=== PATIENT | female | born 1980 | race American Indian/Alaskan Native ===

== ENCOUNTER 2017-11-21 09:25 | Outpatient (CLI) | payer OTHER ==
--- NOTE | 2017-11-21 11:09 | Ultrasound Report ---
Thyroid ultrasound: Goiter. The right lobe measures 15 x 18 x 45 mm. It is generally homogeneous except for a couple of tiny cysts in the lower pole. The left lobe measures 25 x 32 x 53 mm. In the mid and inferior lobe there is a large cyst measuring 24 x 30 x 48 mm. A couple scattered echo densities are noted with in the cyst however the dave appeared generally smooth. No internal flow identified on color imaging. Adjacent to the cyst in the medial lower lobe there is a circumscribed homogeneous hypodensity measuring 6 mm. The isthmus has a thickness of 15 mm and unremarkable. Impressions: Large left lobe cyst with benign appearing left lobe solid nodule. No evidence of goiter.
== END 2017-11-21 09:26 | disposition home or self-care (01) ==
LOC: SPVWC 09:25
PROVIDERS: ATTEND Family Medicine
DX: Z12.31 Encounter for screening mammogram for malignant neoplasm of breast (principal); E04.1 Nontoxic single thyroid nodule; E04.9 Nontoxic goiter, unspecified
CPT/HCPCS: 76536

== ENCOUNTER 2017-11-28 11:10 | Outpatient (CLI) | payer OTHER ==
--- NOTE | 2017-11-28 15:17 | Ultrasound Report ---
TRANSABDOMINAL AND TRANSVAGINAL PELVIC ULTRASOUND: 11/28/17 11:10:00 CLINICAL: Enlarged uterus. FINDINGS: Transabdominal and transvaginal pelvic ultrasound demonstrated a retroflexed uterus measuring 11.2 x 4.7 x 5.9 cm. A posterior intramural uterine body fibroid measures 1.3 x 1.0 x 1.3 cm and is the largest fibroid. There is a suggestion of several smaller fibroids.The endometrium is normal and measures 3.0 mm AP thickness. The right ovary is normal and it measures 2.7 x 2.1 x 2.3cm. A 1 cm dominant follicle of the left ovary. The left ovary measures 2.8 x 2.1 x 1.8cm. No adnexal mass. No free fluid. Normal urinary bladder. IMPRESSION: 1. A mildly enlarged retroflexed fibroid uterus. 2. Normal endometrium. 3. Normal ovaries.
== END 2017-11-28 11:11 | disposition home or self-care (01) ==
LOC: SPVWC 11:10
PROVIDERS: ATTEND Family Medicine
DX: D25.1 Intramural leiomyoma of uterus (principal); N85.2 Hypertrophy of uterus
CPT/HCPCS: 76830; 76856

== ENCOUNTER 2019-06-10 12:22 | Outpatient (CLI) | payer OTHER ==
--- NOTE | 2019-06-10 14:01 | Ultrasound Report ---
TRANSABDOMINAL PELVIC AND TRANSVAGINAL PELVIC ULTRASOUND HISTORY: FIBROIDS COMPARISON: 11/28/2017 TECHNIQUE: Routine transabdominal and transvaginal pelvic ultrasound performed. FINDINGS: TRANSABDOMINAL PELVIC ULTRASOUND: Uterus: Borderline-enlarged retroflexed fibroid uterus measuring 8.7 x 5.3 x 6.9 cm. Endometrium: Normal in thickness. Right Ovary: Not well imaged transabdominally. Left Ovary: Not well imaged transabdominally. Additional findings: Transvaginal exam was performed for better delineation of the endometrium and ov abiodun. TRANSVAGINAL PELVIC ULTRASOUND: Uterus: Borderline enlarged retroflexed fibroid uterus. A single left posterior subserosal lower uter ine segment fibroid measures 2.2 x 1.7 x 2.0 cm. No other measurable fibroids. No masses. Endometrium: Normal thickness measuring 5 mm. Right Ovary: Normal size, blood flow and appearance measuring 3.6 x 3.3 x 2.7 cm. Left Ovary: Normal size, blood flow and appearance measuring 2.7 x 1.8 x 1.5 cm. Additional findings: Minimal free fluid. IMPRESSION: 1. Borderline enlarged fibroid uterus without significant change in size since the last exam. It appe ars that the uterine measurement was over estimated on the last exam. 2. Normal endometrium. 3. Normal ovaries. Signer Name: Josh Winston MD Signed: 06/10/2019 1:56 PM Workstation Name: [id number]
--- NOTE | 2019-06-10 14:37 | Ultrasound Report ---
THYROID ULTRASOUND HISTORY: GOITER COMPARISON: 11/21/2017 TECHNIQUE: Routine sonographic images were obtained of the thyroid. FINDINGS: Right thyroid lobe: Predominantly hyperechoic and mildly heterogeneous overall echo pattern with a f ew benign appearing tiny cysts. Heterogeneous hypoechoic nodule of the inferior right lobe measures 4 x 3 x 2 mm and is not changed compared to the last exam. The right thyroid lobe measures 4.8 x 1.4 x 1.8 cm. Isthmus: No significant abnormality. The isthmus measures 1.0 mm. Left thyroid lobe: Predominantly hyperechoic and mildly heterogeneous overall echo pattern. The prev iously identified dominant cyst in the mid and lower portion of the left thyroid lobe measures 6.0 x 3.0 x 3.6 cm. The left thyroid lobe measures 7.1 x 3.1 x 3.1 cm. Additional Findings: None. IMPRESSION: 1. Multinodular thyroid with slight increased size of both lobes since the last exam. 2. A slightly larger benign appearing cyst of the left lobe which now measures 6 cm. 3. No suspicious nodule. Signer Name: Josh Winston MD Signed: 06/10/2019 2:33 PM Workstation Name: [id number]
--- NOTE | 2019-06-11 15:56 | Mammography Report ---
DIGITAL SCREENING MAMMOGRAM WITH CAD, 06/10/2019 INDICATION: Baseline screening mammography. TECHNIQUE: Digital bilateral 2D mammography was obtained in the craniocaudal and mediolateral obliq ue projections. This examination was interpreted with the benefit of Computer-Aided Detection analysi s. COMPARISON: None. FINDINGS: Breast Density: The breasts are heterogeneously dense, which may obscure small masses. Left asymmetries on the MLO view requires additional imaging. No architectural distortion or suspicio us calcifications of the left breast. There is no evidence of dominant mass, suspicious calcification s or architectural distortion in the right breast. IMPRESSION: Left asymmetries requiring additional workup. Recommend recall for left exaggerated CC an d spot compression MLO views and left breast ultrasound if needed. Follow up recommendation: Special View: Spot Category 0: Incomplete. Needs additional imaging evaluation and/or prior mammograms for comparison. A "normal" or negative report should not discourage follow up or biopsy of a clinically significant f inding. A written summary of these findings will be mailed to the patient. The patient will be entered into a mammography reporting system which will generate a reminder letter for the patient's next appointmen t at the appropriate interval. [employer] recommends yearly mammograms starting at age 40 and continuing as l sourav as a woman is in good health. Breast MRI is recommended for women with an approximate 20-25% or greater lifetime risk of breast cancer, including women with a strong family history of breast or ova kay cancer or who have been treated for Hodgkin's disease. Signer Name: Josh Winston MD Signed: 06/11/2019 3:52 PM Workstation Name: [id number]
== END 2019-06-10 12:23 | disposition home or self-care (01) ==
LOC: SPVWC 12:22
PROVIDERS: ATTEND Family Medicine
DX: Z12.31 Encounter for screening mammogram for malignant neoplasm of breast (principal); D25.9 Leiomyoma of uterus, unspecified; E04.9 Nontoxic goiter, unspecified
CPT/HCPCS: 76536; 76830; 76856; 77067